=== PATIENT | male | born 1955 | race Caucasian/White ===

== ENCOUNTER 2021-04-28 18:21 | Inpatient (IN) | payer BC ==
[~2021-04-28] VITALS: Ht 193 cm; Wt 67.2 kg
[~2021-04-28 18:21] MED LIST changes: -OMEP20ER PO
[2021-04-28 19:02] LABS: BASOPHILS ABSOLUTE AUTO 0.02 K/mm3 (0.00-0.23); BASOPHILS PERCENT AUTO 0 % (0-2); EOSINOPHILS ABSOLUTE AUTO 0.07 K/mm3 (0.00-0.68); EOSINOPHILS PERCENT AUTO 1 % (0-6); Hematocrit 36.7 % (37.0-53.0); Hemoglobin 12.7 g/dL (13.5-17.5); IMMATURE GRAN ABSOLUTE AUTO 0.07 K/mm3 (0.00-0.10); IMMATURE GRAN PERCENT AUTO 1 % (0-1); LYMPHOCYTES ABSOLUTE AUTO 1.06 K/mm3 (0.84-5.20); LYMPHOCYTES PERCENT AUTO 8 % (21-46); MONOCYTES ABSOLUTE AUTO 1.02 K/mm3 (0.16-1.47); MONOCYTES PERCENT AUTO 8 % (4-13); Mean Corpuscular HGB 33.8 pg (26.0-34.0); Mean Corpuscular HGB Conc 34.6 g/dL (31.5-36.5); Mean Corpuscular Volume 98 fL (80-100); Mean Platelet Volume 10.3 fL (9.1-12.4); NEUTROPHILS ABSOLUTE AUTO 11.16 K/mm3 (1.96-9.15); NEUTROPHILS PERCENT AUTO 83 % (41-73); Platelet Count 410 K/mm3 (150-400); RDW Coefficient Variation 12.1 % (11.7-14.2); RDW Standard Deviation 43.8 fL (35.1-46.3); Red Blood Cell Count 3.76 M/mm3 (4.30-5.90)
[2021-04-28 20:20] LABS: Albumin, Blood 2.3 g/dL (3.4-5.0); Albumin/Globulin Ratio 0.6 (0.8-1.8); Bilirubin, Total 0.2 mg/dL (0.1-1.0); Bun/Creatinine Ratio 18.2 (12.0-20.0); Calcium, Blood 8.3 mg/dL (8.5-10.1); Creatinine, Blood 8.11 mg/dL (0.60-1.20); Globulin, Blood 4.1 g/dL (2.2-4.0); Potassium, Blood 5.5 mmol/L (3.5-5.5); Total Protein, Blood 6.4 g/dL (6.4-8.2)
[2021-04-29 06:59] LABS: BASOPHILS ABSOLUTE AUTO 0.02 K/mm3 (0.00-0.23); BASOPHILS PERCENT AUTO 0 % (0-2); EOSINOPHILS ABSOLUTE AUTO 0.11 K/mm3 (0.00-0.68); EOSINOPHILS PERCENT AUTO 1 % (0-6); Hematocrit 34.1 % (37.0-53.0); IMMATURE GRAN ABSOLUTE AUTO 0.04 K/mm3 (0.00-0.10); IMMATURE GRAN PERCENT AUTO 0 % (0-1); LYMPHOCYTES ABSOLUTE AUTO 1.34 K/mm3 (0.84-5.20); LYMPHOCYTES PERCENT AUTO 14 % (21-46); MONOCYTES ABSOLUTE AUTO 0.91 K/mm3 (0.16-1.47); MONOCYTES PERCENT AUTO 10 % (4-13); Mean Corpuscular HGB 33.8 pg (26.0-34.0); Mean Corpuscular HGB Conc 35.2 g/dL (31.5-36.5); Mean Corpuscular Volume 96 fL (80-100); Mean Platelet Volume 9.8 fL (9.1-12.4); NEUTROPHILS ABSOLUTE AUTO 7.06 K/mm3 (1.96-9.15); NEUTROPHILS PERCENT AUTO 75 % (41-73); Platelet Count 381 K/mm3 (150-400); RDW Coefficient Variation 11.9 % (11.7-14.2); Red Blood Cell Count 3.55 M/mm3 (4.30-5.90); White Blood Cell Count 9.48 K/mm3 (4.00-11.30)
[2021-04-29 07:25] LABS: Albumin, Blood 2.2 g/dL (3.4-5.0); Albumin/Globulin Ratio 0.6 (0.8-1.8); Bilirubin, Total 0.4 mg/dL (0.1-1.0); Calcium, Blood 8.3 mg/dL (8.5-10.1); Creatinine, Blood 5.76 mg/dL (0.60-1.20); Potassium, Blood 5.4 mmol/L (3.5-5.5); Total Protein, Blood 6.2 g/dL (6.4-8.2)
[2021-04-29 10:42] LABS: Source, Urine Clean Catch
[2021-04-29 10:50] LABS: Appearance, Urine Clear (Clear); Bilirubin, Urine Neg (Neg); Blood, Urine Neg (Neg); Color, Urine Yellow (P-Yellow); Glucose Qualitative, Urine Neg (Neg); Ketones, Urine Neg (Neg); Leukocyte Esterase, Urine Neg (Neg); Nitrite, Urine Neg (Neg); Protein, Urine 2+ (Neg); Specific Gravity, Urine 1.015 (1.003-1.022); Urobilinogen, Urine NORM (Normal)
[2021-04-29 12:10] LABS: Amorphous Light (0-Heavy); Bacteria Not Seen /hpf; Red Blood Cells, Urine Not Seen /hpf (0-2); Squamous Epithelial Cells Not Seen /hpf (Few); White Blood Cells, Urine 0-2 /hpf (0-5)
--- NOTE | 2021-04-29 19:06 | NUR ---
SHIFT SUMMARY PT ADMITTED FROM THE ED FOR ACUTE RENAL FAILURE AND PARTIAL SBO. PT ON BICARB DRIP AND NPO. A/O X4 AND PLEASANT. NORMAL SINUS ON TELE. VSS. WILL REPORT TO TYRA BLANCAS.
[2021-04-30 05:51] LABS: Albumin, Blood 2.2 g/dL (3.4-5.0); Anion Gap 9 mmol/L (6-16); Blood Urea Nitrogen 112 mg/dL (8-24); CO2, Blood 21 mmol/L (21-32); Calcium, Blood 8.2 mg/dL (8.5-10.1); Chloride, Blood 111 mmol/L (98-108); Creatinine, Blood 2.49 mg/dL (0.60-1.20); Glomerular Filtration Rate 26 (60-); Glucose, Blood 73 mg/dL (70-99); Magnesium, Blood 2.1 mg/dL (1.6-2.4); Phosphorus, Blood 4.8 mg/dL (2.5-4.9); Potassium, Blood 5.1 mmol/L (3.5-5.5); Sodium, Blood 141 mmol/L (136-145)
[2021-04-30 06:04] LABS: BASOPHILS ABSOLUTE AUTO 0.02 K/mm3 (0.00-0.23); BASOPHILS PERCENT AUTO 0 % (0-2); EOSINOPHILS ABSOLUTE AUTO 0.09 K/mm3 (0.00-0.68); EOSINOPHILS PERCENT AUTO 1 % (0-6); Hematocrit 34.8 % (37.0-53.0); Hemoglobin 12.2 g/dL (13.5-17.5); IMMATURE GRAN ABSOLUTE AUTO 0.04 K/mm3 (0.00-0.10); IMMATURE GRAN PERCENT AUTO 1 % (0-1); LYMPHOCYTES ABSOLUTE AUTO 1.16 K/mm3 (0.84-5.20); LYMPHOCYTES PERCENT AUTO 15 % (21-46); MONOCYTES ABSOLUTE AUTO 0.92 K/mm3 (0.16-1.47); MONOCYTES PERCENT AUTO 12 % (4-13); Mean Corpuscular HGB 34.5 pg (26.0-34.0); Mean Corpuscular HGB Conc 35.1 g/dL (31.5-36.5); Mean Corpuscular Volume 98 fL (80-100); Mean Platelet Volume 10.1 fL (9.1-12.4); NEUTROPHILS ABSOLUTE AUTO 5.59 K/mm3 (1.96-9.15); NEUTROPHILS PERCENT AUTO 71 % (41-73); Platelet Count 398 K/mm3 (150-400); RDW Coefficient Variation 11.8 % (11.7-14.2); RDW Standard Deviation 42.8 fL (35.1-46.3); Red Blood Cell Count 3.54 M/mm3 (4.30-5.90); White Blood Cell Count 7.82 K/mm3 (4.00-11.30)
--- NOTE | 2021-04-30 19:32 | NUR ---
SHIFT SUMMARY PT A/O X3; PLEASANT AND COOPERATIVE WITH CARE. TOLERATING CLEAR LIQUIDS WELL. REPORTED BOWEL MOVEMENT TODAY. VSS.
--- NOTE | 2021-05-01 02:27 | NUR ---
ETL ANALYST DEVELOPER SUMMARY PT A/O X4. DENIES PAIN, NAUSEA, SOB. ROOM AIR SATTING IN THE HIGH 90'S. TELE RUNNING SR IN THE 60'S PER GLASS BENDER. SLEPT WELL TONIGHT. NO ACUTE CHANGES, VSS. PT HAD NO BOWEL MOVEMENT ON NOC SHIFT. CALL LIGHT WITHIN REACH, BED ALARM ON, WILL CONTINUE TO MONITOR.
[2021-05-01 05:48] LABS: BASOPHILS ABSOLUTE AUTO 0.03 K/mm3 (0.00-0.23); BASOPHILS PERCENT AUTO 0 % (0-2); EOSINOPHILS ABSOLUTE AUTO 0.27 K/mm3 (0.00-0.68); EOSINOPHILS PERCENT AUTO 4 % (0-6); Hematocrit 32.3 % (37.0-53.0); Hemoglobin 10.9 g/dL (13.5-17.5); IMMATURE GRAN ABSOLUTE AUTO 0.04 K/mm3 (0.00-0.10); IMMATURE GRAN PERCENT AUTO 1 % (0-1); LYMPHOCYTES ABSOLUTE AUTO 1.48 K/mm3 (0.84-5.20); LYMPHOCYTES PERCENT AUTO 21 % (21-46); MONOCYTES ABSOLUTE AUTO 0.88 K/mm3 (0.16-1.47); MONOCYTES PERCENT AUTO 13 % (4-13); Mean Corpuscular HGB Conc 33.7 g/dL (31.5-36.5); Mean Corpuscular Volume 101 fL (80-100); NEUTROPHILS PERCENT AUTO 61 % (41-73); Platelet Count 389 K/mm3 (150-400); RDW Coefficient Variation 11.9 % (11.7-14.2); RDW Standard Deviation 43.8 fL (35.1-46.3); Red Blood Cell Count 3.21 M/mm3 (4.30-5.90)
[2021-05-01 06:20] LABS: Albumin/Globulin Ratio 0.5 (0.8-1.8); Bilirubin, Total 0.4 mg/dL (0.1-1.0); Bun/Creatinine Ratio 52.7 (12.0-20.0); Calcium, Blood 8.5 mg/dL (8.5-10.1); Creatinine, Blood 1.31 mg/dL (0.60-1.20); Magnesium, Blood 1.5 mg/dL (1.6-2.4); Phosphorus, Blood 2.9 mg/dL (2.5-4.9); Potassium, Blood 4.7 mmol/L (3.5-5.5); Thyroid Stimulating Hormone 1.28 uIU/mL (0.360-4.800)
[2021-05-01 11:38] LABS: Hematocrit 33.5 % (37.0-53.0); Hemoglobin 11.2 g/dL (13.5-17.5)
[2021-05-01] MEDS ORDERED: OMEP20ER PO ×2 (12:49)
--- NOTE | 2021-05-01 14:16 | NUR ---
DISCHARGE PATIENT TRANSPORTED VIA WHEELCHAIR TO PRIVATE VEHICLE. DISCHARGE INSTRUCTIONS EXPLAINED TO PATIENT. PATIENT STATED UNDERSTANDING. PACKET SENT WITH PATIENT. BELONGINGS SENT WITH PATIENT. BOTH IV'S REMOVED WITHOUT DIFFICULTY. TELEMETRY REMOVED WITHOUT DIFFICULTY. MEDICATIONS FAXED TO PERFERRED PHARMACY.
== END 2021-05-01 13:57 | disposition home or self-care (01) | DRG 682 ==
LOC: ER 18:21 → ERHOLD 22:29 → MEDS 22:29
PROVIDERS: Emergency Medicine; Family Medicine; ADMIT Internal Medicine
DX: N17.9 Acute kidney failure, unspecified (principal); J18.9 Pneumonia, unspecified organism; K56.7 Ileus, unspecified; E87.1 Hypo-osmolality and hyponatremia; E87.2 Acidosis; L02.212 Cutaneous abscess of back [any part, except buttock and flank]; E87.5 Hyperkalemia; E86.0 Dehydration; K52.9 Noninfective gastroenteritis and colitis, unspecified; D64.9 Anemia, unspecified; E83.42 Hypomagnesemia; E11.9 Type 2 diabetes mellitus without complications; F17.210 Nicotine dependence, cigarettes, uncomplicated; N18.4 Chronic kidney disease, stage 4 (severe); Z79.899 Other long term (current) drug therapy; E88.09 Other disorders of plasma-protein metabolism, not elsewhere classified; I95.9 Hypotension, unspecified
CPT/HCPCS: 36415; 71045; 71046; 74176; 80053; 80069; 81001; 82272; 83735; 84100; 84443; 85014; 85018; 85025; 93005; 93010; 94762; 99285-25; C9113; J0610; J0690; J3475; J7030; J7050

== ENCOUNTER → 2021-04-28 | Outpatient (CLI) | payer BC ==
[~2021-04-28] MED LIST: ALBU90OI INH; Ativan0.5 MG PO; LISI20; OMEP20ER PO; Prednisone20 MG PO; Zithromax250 MG PO
[2021-04-28 19:33] LABS: BASOPHILS ABSOLUTE AUTO 0.03 K/mm3 (0.00-0.23); BASOPHILS PERCENT AUTO 0 % (0-2); EOSINOPHILS ABSOLUTE AUTO 0.08 K/mm3 (0.00-0.68); EOSINOPHILS PERCENT AUTO 1 % (0-6); Hematocrit 38.7 % (37.0-53.0); Hemoglobin 13.6 g/dL (13.5-17.5); IMMATURE GRAN ABSOLUTE AUTO 0.06 K/mm3 (0.00-0.10); IMMATURE GRAN PERCENT AUTO 1 % (0-1); LYMPHOCYTES ABSOLUTE AUTO 1.81 K/mm3 (0.84-5.20); LYMPHOCYTES PERCENT AUTO 14 % (21-46); MONOCYTES ABSOLUTE AUTO 1.38 K/mm3 (0.16-1.47); MONOCYTES PERCENT AUTO 11 % (4-13); Mean Corpuscular HGB 34.1 pg (26.0-34.0); Mean Corpuscular HGB Conc 35.1 g/dL (31.5-36.5); Mean Corpuscular Volume 97 fL (80-100); Mean Platelet Volume 10.4 fL (9.1-12.4); NEUTROPHILS ABSOLUTE AUTO 9.57 K/mm3 (1.96-9.15); NEUTROPHILS PERCENT AUTO 74 % (41-73); Platelet Count 423 K/mm3 (150-400); RDW Coefficient Variation 11.9 % (11.7-14.2); RDW Standard Deviation 42.3 fL (35.1-46.3); Red Blood Cell Count 3.99 M/mm3 (4.30-5.90); White Blood Cell Count 12.93 K/mm3 (4.00-11.30)
[2021-04-28 20:42] LABS: Albumin, Blood 2.6 g/dL (3.4-5.0); Albumin/Globulin Ratio 0.5 (0.8-1.8); Bilirubin, Total 0.3 mg/dL (0.1-1.0); Bun/Creatinine Ratio 16.5 (12.0-20.0); Calcium, Blood 9.1 mg/dL (8.5-10.1); Potassium, Blood 5.6 mmol/L (3.5-5.5); Total Protein, Blood 7.6 g/dL (6.4-8.2)
[2021-04-28 20:44] LABS: Creatinine, Blood 9.45 mg/dL (0.60-1.20)
== END | disposition home or self-care (01) ==
LOC: LAB SHORT 16:40 → LAB 16:40
PROVIDERS: Nurse Practitioner Family
DX: R53.1 Weakness (principal); Z87.11 Personal history of peptic ulcer disease
CPT/HCPCS: 80053; 85025

== ENCOUNTER 2022-11-15 11:42 | Emergency (ER) | payer BC ==
[~2022-11-15] VITALS: Ht 193 cm; Wt 83.9 kg
[~2022-11-15 11:42] MED LIST changes: +METPRE4DP PO; +OMEP20ER PO
[2022-11-15 12:46] LABS: BASOPHILS ABSOLUTE AUTO 0.03 K/mm3 (0.00-0.23); BASOPHILS PERCENT AUTO 1 % (0-2); EOSINOPHILS ABSOLUTE AUTO 0.13 K/mm3 (0.00-0.68); EOSINOPHILS PERCENT AUTO 2 % (0-6); Hematocrit 40.9 % (37.0-53.0); Hemoglobin 13.6 g/dL (13.5-17.5); IMMATURE GRAN ABSOLUTE AUTO 0.04 K/mm3 (0.00-0.10); IMMATURE GRAN PERCENT AUTO 1 % (0-1); LYMPHOCYTES ABSOLUTE AUTO 1.08 K/mm3 (0.84-5.20); LYMPHOCYTES PERCENT AUTO 20 % (21-46); MONOCYTES ABSOLUTE AUTO 0.35 K/mm3 (0.16-1.47); MONOCYTES PERCENT AUTO 7 % (4-13); Mean Corpuscular HGB 30.8 pg (26.0-34.0); Mean Corpuscular HGB Conc 33.3 g/dL (31.5-36.5); NEUTROPHILS ABSOLUTE AUTO 3.68 K/mm3 (1.96-9.15); NEUTROPHILS PERCENT AUTO 69 % (41-73); RDW Coefficient Variation 13.7 % (11.7-14.2); RDW Standard Deviation 46.5 fL (35.1-46.3); Red Blood Cell Count 4.42 M/mm3 (4.30-5.90); White Blood Cell Count 5.31 K/mm3 (4.00-11.30)
[2022-11-15 12:48] LABS: Mean Corpuscular Volume 93 fL (80-100); Mean Platelet Volume 10.1 fL (9.1-12.4); Platelet Count 296 K/mm3 (150-400)
[2022-11-15] MEDS ORDERED: FUROSEMIDE20 MG PO (13:27)
[2022-11-15] MEDS ORDERED: Potassium Chlo20 ME1 PO (13:27)
[2022-11-15 13:41] LABS: Albumin, Blood 2.9 g/dL (3.4-5.0); Albumin/Globulin Ratio 0.8 (0.8-1.8); Bilirubin, Total 0.6 mg/dL (0.1-1.0); Calcium, Blood 8.3 mg/dL (8.5-10.1); Creatinine, Blood 0.88 mg/dL (0.60-1.20); Globulin, Blood 3.7 g/dL (2.2-4.0); Potassium, Blood 4.2 mmol/L (3.5-5.5); Total Protein, Blood 6.6 g/dL (6.4-8.2)
[2022-11-15 14:53] LABS: Magnesium, Blood 2.1 mg/dL (1.6-2.4)
== END 2022-11-15 15:00 | disposition home or self-care (01) ==
LOC: ER 11:42
PROVIDERS: Emergency Medicine; Physician Assistant
DX: I11.0 Hypertensive heart disease with heart failure (principal); I50.9 Heart failure, unspecified; J44.9 Chronic obstructive pulmonary disease, unspecified; R06.01 Orthopnea; E11.9 Type 2 diabetes mellitus without complications; F17.200 Nicotine dependence, unspecified, uncomplicated
CPT/HCPCS: 36415; 71046; 80053; 83690; 83735; 83880; 84484; 85025; 93005; 93010; 96374; 99284-25; G0480; J1940

== ENCOUNTER 2022-11-21 16:46 | Emergency (ER) | payer BC ==
[~2022-11-21] VITALS: Ht 193 cm; Wt 81.7 kg
[~2022-11-21 16:46] MED LIST changes: +FUROSEMIDE20 MG PO; +Potassium Chlo20 ME1 PO
[2022-11-21 17:16] LABS: BASOPHILS ABSOLUTE AUTO 0.03 K/mm3 (0.00-0.23); BASOPHILS PERCENT AUTO 0 % (0-2); EOSINOPHILS ABSOLUTE AUTO 0.13 K/mm3 (0.00-0.68); EOSINOPHILS PERCENT AUTO 2 % (0-6); Hematocrit 41.4 % (37.0-53.0); Hemoglobin 13.7 g/dL (13.5-17.5); IMMATURE GRAN ABSOLUTE AUTO 0.02 K/mm3 (0.00-0.10); IMMATURE GRAN PERCENT AUTO 0 % (0-1); LYMPHOCYTES ABSOLUTE AUTO 1.31 K/mm3 (0.84-5.20); LYMPHOCYTES PERCENT AUTO 19 % (21-46); MONOCYTES ABSOLUTE AUTO 0.74 K/mm3 (0.16-1.47); MONOCYTES PERCENT AUTO 11 % (4-13); Mean Corpuscular HGB 30.6 pg (26.0-34.0); Mean Corpuscular HGB Conc 33.1 g/dL (31.5-36.5); Mean Corpuscular Volume 93 fL (80-100); Mean Platelet Volume 10.9 fL (9.1-12.4); NEUTROPHILS ABSOLUTE AUTO 4.78 K/mm3 (1.96-9.15); NEUTROPHILS PERCENT AUTO 68 % (41-73); Platelet Count 207 K/mm3 (150-400); RDW Coefficient Variation 14.3 % (11.7-14.2); RDW Standard Deviation 47.8 fL (35.1-46.3); Red Blood Cell Count 4.47 M/mm3 (4.30-5.90); White Blood Cell Count 7.01 K/mm3 (4.00-11.30)
[2022-11-21 17:35] LABS: Albumin, Blood 2.8 g/dL (3.4-5.0); Albumin/Globulin Ratio 0.7 (0.8-1.8); Bilirubin, Total 1.4 mg/dL (0.1-1.0); Bun/Creatinine Ratio 17.6 (12.0-20.0); Calcium, Blood 8.8 mg/dL (8.5-10.1); Creatinine, Blood 1.02 mg/dL (0.60-1.20); Globulin, Blood 3.9 g/dL (2.2-4.0); Magnesium, Blood 2.2 mg/dL (1.6-2.4); Potassium, Blood 4.4 mmol/L (3.5-5.5); Total Protein, Blood 6.7 g/dL (6.4-8.2)
== END 2022-11-21 21:27 | disposition home or self-care (01) ==
LOC: ER 16:46
PROVIDERS: Physician Assistant
DX: I11.0 Hypertensive heart disease with heart failure (principal); I50.9 Heart failure, unspecified; J44.9 Chronic obstructive pulmonary disease, unspecified; E11.9 Type 2 diabetes mellitus without complications; F17.210 Nicotine dependence, cigarettes, uncomplicated; Z79.899 Other long term (current) drug therapy
CPT/HCPCS: 36415; 71046; 80053; 83735; 83880; 84484; 85025; 93005; 93010; 96374; 99284-25; J1940

== ENCOUNTER 2022-11-22 20:33 | Emergency (ER) | payer BC ==
[~2022-11-22] VITALS: Ht 193 cm; Wt 81.7 kg
[2022-11-22 21:25] LABS: BASOPHILS ABSOLUTE AUTO 0.04 K/mm3 (0.00-0.23); BASOPHILS PERCENT AUTO 1 % (0-2); EOSINOPHILS ABSOLUTE AUTO 0.02 K/mm3 (0.00-0.68); EOSINOPHILS PERCENT AUTO 0 % (0-6); Hemoglobin 13.5 g/dL (13.5-17.5); IMMATURE GRAN ABSOLUTE AUTO 0.04 K/mm3 (0.00-0.10); IMMATURE GRAN PERCENT AUTO 1 % (0-1); LYMPHOCYTES PERCENT AUTO 15 % (21-46); MONOCYTES ABSOLUTE AUTO 0.89 K/mm3 (0.16-1.47); MONOCYTES PERCENT AUTO 11 % (4-13); Mean Corpuscular HGB Conc 33.8 g/dL (31.5-36.5); Mean Corpuscular Volume 92 fL (80-100); NEUTROPHILS ABSOLUTE AUTO 5.77 K/mm3 (1.96-9.15); NEUTROPHILS PERCENT AUTO 72 % (41-73); Platelet Count 181 K/mm3 (150-400); RDW Coefficient Variation 14.5 % (11.7-14.2); RDW Standard Deviation 48.1 fL (35.1-46.3); Red Blood Cell Count 4.35 M/mm3 (4.30-5.90); White Blood Cell Count 7.96 K/mm3 (4.00-11.30)
[2022-11-22 21:49] LABS: Albumin, Blood 2.9 g/dL (3.4-5.0); Albumin/Globulin Ratio 0.8 (0.8-1.8); Bilirubin, Total 1.4 mg/dL (0.1-1.0); Bun/Creatinine Ratio 17.3 (12.0-20.0); Calcium, Blood 8.8 mg/dL (8.5-10.1); Creatinine, Blood 1.1 mg/dL (0.60-1.20); Globulin, Blood 3.6 g/dL (2.2-4.0); Potassium, Blood 4.3 mmol/L (3.5-5.5); Total Protein, Blood 6.5 g/dL (6.4-8.2)
== END 2022-11-22 22:07 | disposition left against medical advice (07) ==
LOC: ER 20:33
PROVIDERS: Emergency Medicine
DX: R41.82 Altered mental status, unspecified (principal); Z53.21 Procedure and treatment not carried out due to patient leaving prior to being seen by health care provider
CPT/HCPCS: 36415; 80053; 85025

== ENCOUNTER 2022-12-10 06:00 | Inpatient (IN) | payer BC, MEDICARE ==
[~2022-12-10] VITALS: Ht 188 cm; Wt 67.7 kg
[2022-12-10] VITALS (19 sets, daily range): BP systolic 98–124; BP diastolic 72–94
[2022-12-10 06:52] LABS: BASOPHILS ABSOLUTE AUTO 0.02 K/mm3 (0.00-0.23); BASOPHILS PERCENT AUTO 0 % (0-2); EOSINOPHILS ABSOLUTE AUTO 0.02 K/mm3 (0.00-0.68); EOSINOPHILS PERCENT AUTO 0 % (0-6); Hematocrit 41.3 % (37.0-53.0); Hemoglobin 13.4 g/dL (13.5-17.5); IMMATURE GRAN ABSOLUTE AUTO 0.08 K/mm3 (0.00-0.10); IMMATURE GRAN PERCENT AUTO 1 % (0-1); LYMPHOCYTES ABSOLUTE AUTO 1.27 K/mm3 (0.84-5.20); LYMPHOCYTES PERCENT AUTO 10 % (21-46); MONOCYTES PERCENT AUTO 11 % (4-13); Mean Corpuscular HGB Conc 32.4 g/dL (31.5-36.5); Mean Corpuscular Volume 93 fL (80-100); Mean Platelet Volume 10.6 fL (9.1-12.4); NEUTROPHILS PERCENT AUTO 79 % (41-73); Platelet Count 304 K/mm3 (150-400); RDW Coefficient Variation 15.3 % (11.7-14.2); RDW Standard Deviation 50.7 fL (35.1-46.3); Red Blood Cell Count 4.46 M/mm3 (4.30-5.90); White Blood Cell Count 13.39 K/mm3 (4.00-11.30)
[2022-12-10 07:02] LABS: Albumin, Blood 2.6 g/dL (3.4-5.0); Albumin/Globulin Ratio 0.7 (0.8-1.8); Bilirubin, Total 0.6 mg/dL (0.1-1.0); Bun/Creatinine Ratio 40.3 (12.0-20.0); Calcium, Blood 8.8 mg/dL (8.5-10.1); Creatinine, Blood 0.84 mg/dL (0.60-1.20); Globulin, Blood 3.8 g/dL (2.2-4.0); Potassium, Blood 5.8 mmol/L (3.5-5.5); Total Protein, Blood 6.4 g/dL (6.4-8.2)
--- NOTE | 2022-12-10 11:05 | NUR ---
RECEIVED REPORT FROM THE ER NURSE. PT ARRIVED VIA GURNEY. HE APPEARED VERY SOMNOLENT. PT ON 2L NC WITH SATS IN THE MID 90'S WITH PERIODS OF APNEA IN WHICH HE DESATS TO 90%. LUNG SOUNDS COARSE WITH WHEEZING T/O UPPER AND LOWER LOBES. PT HAS 4+ PITTING EDEMA IN LOWER EXTREMITIES BILATERALLY AND IN THE SCROTUM. PT AWAKENS TO PAINFUL STIMULI AND MOANS, HOWEVER DOES NOT ANSWER QUESTIONS. DR. ROSENBERG MADE AWARE OF PT STATUS VBG WAS DRAWN WITH NO SIGNIFICANT RESULTS. URINE TOX OBTAINED VIA STRAIGHT CATH RESULTS NEGATIVE. DR. ROSENBERG AT BEDSIDE TO OBSERVE PT. NO NEW ORDERS AT THIS TIME. PER DR. ROSENBERG HE SUGGESTED WE MONITOR PT UNTIL HE BECOMES ALERT AND RESPONSIVE. PT HEART RATE IN THE 100'S IN SINUS TACHYCARDIA. WILL CONTINUE TO MONITOR THE PT T/O THE SHIFT.
[2022-12-10 11:35] LABS: Base Excess Venous -3.6 mmol/L; Bicarbonate Venous 21.9 mmol/L (24.0-30.0); PCO2 Venous 34.3 mmHg (38-42)
[2022-12-10 12:48] LABS: U Amphetamine Screen Not Detected; U Barbituate Screen Not Detected; U Benzodiazapine Screen Not Detected; U Buprenorphine Screen Not Detected; U Cannabinoids Screen Not Detected; U Cocaine Screen Not Detected; U Methadone Screen Not Detected; U Methamphetamine Screen Not Detected; U Opiates Screen Not Detected; U Oxycodone Screen Not Detected; U Phencyclidine Screen Not Detected; U Propoxyphene Screen Not Detected
[2022-12-10 17:30] LABS: Bun/Creatinine Ratio 48.2 (12.0-20.0); Calcium, Blood 8.8 mg/dL (8.5-10.1); Creatinine, Blood 0.83 mg/dL (0.60-1.20); Potassium, Blood 5.1 mmol/L (3.5-5.5)
[2022-12-10 18:00] LABS: Source, Urine Foley catheter
[2022-12-10 18:20] LABS: Appearance, Urine Clear (Clear); Bilirubin, Urine Neg (Neg); Blood, Urine 2+ (Neg); Color, Urine Yellow (P-Yellow); Glucose Qualitative, Urine Neg (Neg); Ketones, Urine Neg (Neg); Leukocyte Esterase, Urine Neg (Neg); Nitrite, Urine Neg (Neg); Protein, Urine 1+ (Neg); Urobilinogen, Urine NORM (Normal)
[2022-12-10 18:33] LABS: Hyaline Casts 0-2 /lpf (0-2)
[2022-12-10 18:34] LABS: Bacteria Few /hpf; Squamous Epithelial Cells Not Seen /hpf (Few); White Blood Cells, Urine 0-2 /hpf (0-5)
--- NOTE | 2022-12-10 18:45 | NUR ---
PT SUMMARY: AGREED WITH STUDENTS PREVIOUS NOTE/DOCUMENTATION. PT REMAINED SOMNOLENT AND LETHARGIC MUMBLES WHEN ASKED QUESTIONS FALLS BACK TO SLEEP, STILL HAS APNEA EPISODES WITH GALNIA KEITA TYPE PATTERN OF RESPIRATIONS SATS WILL DROP TO LOW 90'S WITH APNEA OTHERWISE MAINTAINED >95%, SBP 90-100'S, HRR SR/ST 90-110'S, AFEBRILE. DISCUSSED PLAN WITH DR ROSENBERG PER ECHO PERSON ESTIMATED EF WAS AT 9% WITH DILATED CARDIOMYOPATHY AND PERICARDIAL EFFUSION, DR RATLIFF WAS CONSULTED ATTEMPTED TO SEE PT COULDNT GET ANY OTHER INFORMATION PT WAS SOMNOLENT, HE MENTIONED HE WILL TALK TO THE HOSPITALIST ABOUT THE PLAN. PT OF THIS TIME IS ICU STATUS FOR POSSIBLE LASIX AND INOTROPIN GTT. AWAITING SHIFT CHANGE TO GIVE REPORT TO ICU NURSE. MOORE CATHETER WAS PLACED FOR ACCURATE OUTPUT CHECK. BEFORE SHIFT CHANGE PT STARTED TO WAKE UP STILL MUMBLES WAS AGITATED TRYING TO PULL HIS CATHETER OUT, PULLING TELE OFF, THREATENING TO PUNCH THE STUDENT THE STUDENT WAS TRYING TO PUT THE O2 BACK ON. AWAITING TO TRANSFER TO ICU
--- NOTE | 2022-12-10 19:25 | NUR ---
PATIENT ARRIVED TO ICU 10 VIA BED FROM PCU. PATIENT AWAKE AND WANTING TO GET UP AND GO OUTSIDE TO SMOKE. BECOMING ANGRY WHEN ATTEMPT TO EXPLAIN THAT HE IS IN THE HOSPITAL BECAUSE OF HIS HEART AND HAVING DIFFICULTY WITH BEING SOB AT HOME. PATIENT TRANSFERRED TO ICU BED USING SLIDER SHEET AND PLACED ON ICU MONITORS. OXYGEN 2L/NC, MOIST NONPRODUCTIVE COUGH. MOORE DRAINING CLEAR YELLOW URINE.
--- NOTE | 2022-12-10 21:00 | NUR ---
PATIENT CONTINUES TO BE CONFUSED YELLING OUT, WANTING TO GO OUTSIDE TO HAVE A CIGARETTE. DESPITE FREQUENT REMINDERS TO NOT PULL OFF HEART MONITOR AND TO NOT PULL AT MOORE AND IV, PATIENT CONTINUES TO FORGET AND TRY TO REMOVE LINES AND CORDS. DAHLIA MORAES CALLED REGARDING PATIENTS CONTINUED AGITATION AND CONFUSION AND PLACEMENT OF BILAT SOFT WRIST RESTRAINTS. SEE NEW ORDERS
[2022-12-11] VITALS (27 sets, daily range): BP systolic 95–134; BP diastolic 54–104
[2022-12-11 03:06] LABS: Hematocrit 44.2 % (37.0-53.0); Mean Corpuscular HGB 30.2 pg (26.0-34.0); Mean Corpuscular HGB Conc 33.9 g/dL (31.5-36.5); Mean Corpuscular Volume 89 fL (80-100); Mean Platelet Volume 10.4 fL (9.1-12.4); Platelet Count 274 K/mm3 (150-400); RDW Coefficient Variation 15.5 % (11.7-14.2); RDW Standard Deviation 49.6 fL (35.1-46.3); Red Blood Cell Count 4.96 M/mm3 (4.30-5.90); White Blood Cell Count 12.51 K/mm3 (4.00-11.30)
--- NOTE | 2022-12-11 03:06 | NUR ---
PATIENT MORE RESTLESS AND UNABLE TO LAY STILL AND RELAX. ABLE TO COUGH UP A LARGE AMT OF THICK MOREJON SPUTUM OUT ONTO THE BED. HALDOL IV GIVEN, NOW PATIENT HAVING PERIODS OF APNEA, AWAKENING IN A PANIC WITH RESP IN THE 30'S. BIOX RANGING 89-100% ON 2L/NC. PATIENT HAD RUN OF VTACH, SELF RESOLVING. LAB CALLED TO HAVE AM LABS DRAWN EARLY
[2022-12-11 03:20] LABS: Bun/Creatinine Ratio 46.9 (12.0-20.0); Calcium, Blood 8.6 mg/dL (8.5-10.1); Creatinine, Blood 0.9 mg/dL (0.60-1.20); Potassium, Blood 4.9 mmol/L (3.5-5.5)
[2022-12-11 03:57] LABS: Magnesium, Blood 2.1 mg/dL (1.6-2.4); Phosphorus, Blood 4.2 mg/dL (2.5-4.9)
--- NOTE | 2022-12-11 06:44 | NUR ---
PATIENT RESTLESS AND ANXIOUS WHEN AWAKE. WAS IN BILAT WRIST RESTRAINTS TO REMIND PATIENT TO NOT PULL ON LINES AND CORDS, RESTRAINTS OFF NOW AND PATIENT NOT PULLING ON LINES AND CORDS AT THIS TIME. CONTINUES TO WANT TO GO HOME "I WILL FEEL BETTER IF I CAN JUST GO HOME" ATTEMPTING TO OBTAIN FAMILY NAME AND NUMBERS, PATIENT STATES HE HAS A BUT THEN NOT GIVING ME HER NAME OR HER NUMBER PATIENT GIVEN HIS CELL PHONE, BUT PATIENT HAVING DIFFICULTY WITH OPENING OUT OF SECURITY SCREEN. PATIENT CONTINUES SINUS TACH WITH OCCASIONAL PVC, WHEN UPSET AND ATTEMPTING TO POSITION SELF PATIENT HAD RUN OF SELF RESOLVING VTACH. NOW WITH ZYPREXA PATIENT SLEEPING MAINTAINING BIOX 97% ON 2L/NC SINUS RHYTHM LOW 100'S. SKIN COLOR CONTINUES TO BE DUSKY. GOOD URINE OUT PUT VIA MOORE.
--- NOTE | 2022-12-11 07:00 | NUR ---
ASSUME CARE: I have assumed care of this patient.
--- NOTE | 2022-12-11 15:48 | NUR ---
Met with pt at bedside along with Dr. Suero, and held a breif conversation with him. He was able to answer basic questions like, "do you know where you are" and "Do you know where you live?" He answered appropriately, for a few questions and then stopped and stared at us. Will attempt to meet with him again tomorrow.
--- NOTE | 2022-12-11 18:57 | NUR ---
SHIFT SUMMARY: pt more alert as the day progressed; oriented to self, family, and location. He was able to talk to his daughter over the phone this afternoon. RN updated pt's brother and daughter as well. Pt has requested to "go home" or "go outside to smoke" several times. Family meeting scheduled for [address] Cabrera was informed of this. NSR on monitor; BPs stable. Storm catheter in place draining to gravity. Pt took pills crushed in apple sauce after he passed a bedside swallow.
--- NOTE | 2022-12-11 20:58 | NUR ---
ASSUMED CARE AT 1900 PATIENT IS LETHARGIC, OPEN EYES SPONT BUT FALLS ASLEEP WHILE TALKING. FOLLOW COMMANDS AND ORIENTED X4. 02 SATS 95% ON RA, LS COARSE, PATIENT HAS WEAK COUGH. HR SR 90s, BP STABLE. MOORE PATENT AND DRAINING TO GRAVITY. PATIENT REPOSITIONED. CALL LIGHT IN REACH.
[2022-12-12] VITALS (28 sets, daily range): BP systolic 75–130; BP diastolic 47–89
[2022-12-12 03:50] LABS: BASOPHILS ABSOLUTE AUTO 0.02 K/mm3 (0.00-0.23); BASOPHILS PERCENT AUTO 0 % (0-2); EOSINOPHILS ABSOLUTE AUTO 0.04 K/mm3 (0.00-0.68); EOSINOPHILS PERCENT AUTO 0 % (0-6); Hematocrit 40.6 % (37.0-53.0); Hemoglobin 14.4 g/dL (13.5-17.5); IMMATURE GRAN ABSOLUTE AUTO 0.08 K/mm3 (0.00-0.10); IMMATURE GRAN PERCENT AUTO 1 % (0-1); LYMPHOCYTES PERCENT AUTO 8 % (21-46); MONOCYTES ABSOLUTE AUTO 1.06 K/mm3 (0.16-1.47); MONOCYTES PERCENT AUTO 10 % (4-13); Mean Corpuscular HGB 30.4 pg (26.0-34.0); Mean Corpuscular HGB Conc 35.5 g/dL (31.5-36.5); Mean Corpuscular Volume 86 fL (80-100); Mean Platelet Volume 10.1 fL (9.1-12.4); NEUTROPHILS ABSOLUTE AUTO 8.57 K/mm3 (1.96-9.15); NEUTROPHILS PERCENT AUTO 81 % (41-73); Platelet Count 201 K/mm3 (150-400); RDW Coefficient Variation 15.3 % (11.7-14.2); RDW Standard Deviation 47.3 fL (35.1-46.3); Red Blood Cell Count 4.74 M/mm3 (4.30-5.90); White Blood Cell Count 10.57 K/mm3 (4.00-11.30)
[2022-12-12 04:39] LABS: Albumin/Globulin Ratio 0.6 (0.8-1.8); Bilirubin, Total 1.2 mg/dL (0.1-1.0); Bun/Creatinine Ratio 38.1 (12.0-20.0); Calcium, Blood 8.2 mg/dL (8.5-10.1); Creatinine, Blood 0.89 mg/dL (0.60-1.20); Globulin, Blood 3.4 g/dL (2.2-4.0); Magnesium, Blood 1.8 mg/dL (1.6-2.4); Potassium, Blood 3.5 mmol/L (3.5-5.5); Total Protein, Blood 5.4 g/dL (6.4-8.2)
--- NOTE | 2022-12-12 05:26 | NUR ---
SHIFT SUMMARY PATIENT IS ALERT AND ORIENTED X4, FORGETFUL AT TIMES. 02 SATS >95% ON RA. HR SR-ST 90s-105. BP STABLE, DENIES CP/PRESSURE. MOORE PATENT AND DRAINING TO GRAVITY. PATIENT NPO. COUGHING UP SMALL AMOUNT OF BLOODY SPUTUM. ASSISTANCE WITH REPOSITIONING Q2 HOURS. CALL LIGHT IN REACH
--- NOTE | 2022-12-12 09:32 | NUR ---
Joint visit from [facility] with Pt, Pt's daughter Maryse, and Pt's brother Bonilla. Dr Cabrera, Dr Suero, Primary RN Carlyn, RN Caremanager Mtz, and this PC RN present. Pt awake and alert today. Dr Cabrera had discussion with Pt regarding code status wishes with Pt reporting Full Code status. Dr Cabrera discusses Pt's condition and reviews plan of care with Pt and family. Pt is agreeable to move forward with procedure. Family agrees that brother Bonilla should be person to notify and information can be passed on to family by Bonilla. Pt's daughter Chanel is on her way up from [place]. Remained behind and offered supportive visit to Pt and family. Pt's brother Bonilla Rodríguez [phone]. Palliative Care will F/U for advanced care planning and supportive visits
--- NOTE | 2022-12-12 09:34 | NUR ---
PT IS ALERT AND ORIENTED THIS MORNING. HE HAD HIS MEETING WITH DR. RATLIFF, PT'S LINN AND PT'S BROTHER. PALLIATIVE CARE AND CARE MANAGEMENT ALSO CAME BY. THE PLAN IS FOR PT TO HAVE HEART CATH TOMORROW IF HIS BNP IS DOWN ENOUGH. DR. RATLIFF ALSO GAVE ORDERS FOR METOPROLOL, BABY ASPIRIN, AND TO START A DIET, BUT NPO AFTER MIDNIGHT TONIGHT.
--- NOTE | 2022-12-12 09:59 | NUR ---
SVT PT'S HR JUMPED TO THE 180S AND SUSTAINED FOR LESS THAN A MINUTE, BEFORE SLOWING. RHYTHM SHOWED BIGEMINY AND TRIGEMINY IT SLOWED. PT'S MENTATION REMAINED INTACT. DENIED ANY SYMPTOMS. RATE NOW 110S WITH FREQUENT PVC. DR. RATLIFF NOTIFIED AND HE VERIFIED THAT METPOROLOL AND POTASSIUM WERE GIVEN ABOUT 30 MINUTES AGO. CONTINUE TO MONITOR.
--- NOTE | 2022-12-12 10:47 | NUR ---
"Spiritual Care Visit | Pt. Request Pt. is sitting up in bed and welcomes my visit. Pt. is pleasant but displays episodes of somnilence during our visit. Pt. 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 This timber cruiser verbalized gratitude for the Pts. service. The Pt. displayed evidence of sominlence but invited this timber cruiser to pray. Prayed with Pt. Will continue to be available to the Pt."
--- NOTE | 2022-12-12 11:55 | NUR ---
REASSESSMENT PT HAS REMAINED ALERT AND ORIENTED THROUGHOUT THE MORNING, BUT HE DOES HAVE MOMENTS OF CONFUSION WHERE HE YELLS OUT FOR HIS KIDS TO COME INTO THE ROOM, THINKING THAT THEY ARE JUST OUTSIDE THE CURTAIN. HE IS EASILY REORIENTED. HIS LUNGS ARE CLEAR, RA. NO MORE SVT SINCE THE ONE EPISODE. HE DID COMPLAIN OF FEELING A LITTLE DIZZY AT ONE POINT, BUT HR AND BP WERE UNCHANGED AND EPISODE QUICKLY PASSED. SIT WITH PVCS. TOLERATING DIET, BUT MINIMAL APPETITE. MOORE WITH CL YELLOW URINE. PT GOT UP TO THE CHAIR FOR LUNCH.
--- NOTE | 2022-12-12 16:43 | NUR ---
SHIFT SUMMARY PT HAS MAINTAINED HIS MENTATION THROUGHOUT THE DAY. HE IS ALERT AND ORIENTED. LESS EPISODES OF CONFUSION THIS AFTERNOON. HIS LUNGS ARE CLEAR. HE STILL HAS A CONGESTED COUGH WITH SMALL AMT OF THICK RED SPUTUM. SINUS TACH WITH PVCS, TRIGEMINY AT TIMES. HE HAS BEEN TOLERATING HIS PO DIET. PT WANTS TO DRINK LOTS OF FLUIDS AND HAS NEEDED REMINDERS ABOUT FLUID BALANCE ALL DAY. HE IS AGREEABLE TO MODERATING PO FLUID INTAKE WHEN REMINDED. MOORE WITH GOOD OUTPUT, YELLOW. FAMILY VISITED THROUGHOUT THE DAY AND WAS UPDATED.
--- NOTE | 2022-12-12 20:21 | NUR ---
ASSUMED CARE PATIENT IS ALERT AND ORIENTED X4, CAN BE FORGETFUL. 02 SATS 96% ON RA, DENIES SOB. COUGHING UP SMALL AMOUNT OF RED SPUTUM. HR SR-ST 90s-110 WITH PVCs, BP STABLE. MOORE PATENT AND DRAINING TO GRAVITY. PATIENT INDEPENDENT IN BED. FAMILY AT BEDSIDE. CALL LIGHT IN REACH
[2022-12-13] VITALS (17 sets, daily range): BP systolic 70–135; BP diastolic 54–118
[2022-12-13 03:52] LABS: Bun/Creatinine Ratio 30.3 (12.0-20.0); Calcium, Blood 8.3 mg/dL (8.5-10.1); Creatinine, Blood 0.69 mg/dL (0.60-1.20); Magnesium, Blood 1.5 mg/dL (1.6-2.4); Potassium, Blood 2.9 mmol/L (3.5-5.5)
--- NOTE | 2022-12-13 06:17 | NUR ---
SHIFT SUMMARY PATIENT REMAINS ALERT AND ORIENTED. 02 SATS >93% ON RA. SPITTING UP SMALL AMOUNTS OF BLOODY SPUTUM. HR SR 90s, WITH SOME PVCs. BP STABLE, DENIES CP/PRESSURE. MOORE PATENT AND DRAINING TO GRAVITY. REPLACING POTASSIUM AND MAG THIS AM. NPO SINCE MIDNIGHT. PATIENT ABLE TO REPOSITION SELF IN BED, ASSISTANCE PRN
--- NOTE | 2022-12-13 07:24 | NUR ---
ASSUMED CARE: PT RESTING IN BED ON RA AT THIS TIME. NSR ON TELE IN THE . NPO FOR POSSIBLE PROCEDURE TODAY. AWAITING FURTHER INSTRUCTIONS FROM PHYSICIAN. REMINDED PT THAT HE IS NPO AT THIS TIME.
--- NOTE | 2022-12-13 09:17 | NUR ---
PT CONTINUES TO ASK IF HE CAN EAT. CALL TO CONTROL ROOM TO FIND OUT DR RATLIFF'S PLANS. DR IN CASE. STAFF WILL GIVE THE MESSAGE
--- NOTE | 2022-12-13 11:47 | NUR ---
HEART CENTER STAFF HERE TO COLLECT PT. PT BEING TAKEN TO EATING DISORDER PSYCHOLOGIST VIA BED. POTASSIUM STILL INFUSING
--- NOTE | 2022-12-13 15:08 | NUR ---
PT RETURNED FROM WEBLOGIC ADMINISTRATOR WITH TR BAND TO RIGHT WRIST AND GROIN SITE TO RIGHT GROIN. SCANT BRUISING NOTED TO WRIST. NO BLEEDING OR SWELLING NOTED TO GROIN. PT PROVIDED WITH FOOD PER ORDERS. NO ACUTE NEEDS AT THIS TIME.
--- NOTE | 2022-12-13 17:57 | NUR ---
SHIFT SUMMARY: PT RETURNED FROM ELECTRICAL ESTIMATOR WITH RIGHT RADIAL SITE AND RIGHT GROIN SITE. NO SIGN OF BLEEDING OR BRUISING IN GROIN, SMALL AMOUNT OF BRUISING TO RIGHT WRIST. UP IN CHAIR AT THIS TIME. PT HAS BEEN AGITATED THIS EVENING, THINKS HE IS AT HOME, KEEPS ASKING WHERE HIS DAUGHTER IS. TAB ALARM IN PLACE BECAUSE PT IS IMPULSIVE. NO FURTHER NEEDS AT THIS TIME.
[2022-12-14 01:00] VITALS: BP 74/56
--- NOTE | 2022-12-14 01:13 | NUR ---
PT UPDATE: PT CALLED IN THIS RN AND PRECEEDS TO STATE " [facility] CALL [facility]". PT EDUCATED ABOUT NOT BEING ABLE TO SIT AT NURSES STATIONS AND THAT IF HE WANTED TO HE COULD SIT IN A CHAIR IN HIS ROOM. PT VERY ADAMANT ABOUT LEAVING HIS ROOM TO MAKE THE PHONE CALL. PT CONTINUED TO BECOME AGGITATED AND DEMANDS THE EKG LEADS AND BLOOD PRESSURE CUFF TO BE REMOVED. PT STATES " I AM GOING HOME TOMORROW MORNING AT 0800, YOU BETTER HAVE ALL MY STUFF READY". PT IS NOT ABLE TO BE REDIRECTED. PT USING CURSE WORDS AT STAFF MEMBERS. PT IS NOW SITTING IN A RECLINER IN HIS ROOM AT THIS TIME. WILL CONTINUE TO MONITOR.
[2022-12-14 03:58] VITALS: BP 97/62
--- NOTE | 2022-12-14 05:15 | NUR ---
SHIFT SUMMARY ASSUMED CARE OF PT AT 0400. PT WAS SLEEPY. HEART SOUNDS REGULAR. LUNG SOUNDS DIMINISHED AT BASES. PT SLEPT THE REMAINDER OF SHIFT AFTER TRANSFER.
[2022-12-14 06:09] LABS: Bun/Creatinine Ratio 40.7 (12.0-20.0); Calcium, Blood 7.7 mg/dL (8.5-10.1); Creatinine, Blood 0.71 mg/dL (0.60-1.20); Magnesium, Blood 1.9 mg/dL (1.6-2.4); Potassium, Blood 3.4 mmol/L (3.5-5.5)
[2022-12-14 06:43] LABS: BASOPHILS ABSOLUTE AUTO 0.01 K/mm3 (0.00-0.23); BASOPHILS PERCENT AUTO 0 % (0-2); EOSINOPHILS PERCENT AUTO 1 % (0-6); Hematocrit 41.5 % (37.0-53.0); Hemoglobin 14.3 g/dL (13.5-17.5); IMMATURE GRAN ABSOLUTE AUTO 0.04 K/mm3 (0.00-0.10); IMMATURE GRAN PERCENT AUTO 0 % (0-1); LYMPHOCYTES ABSOLUTE AUTO 0.85 K/mm3 (0.84-5.20); LYMPHOCYTES PERCENT AUTO 9 % (21-46); MONOCYTES ABSOLUTE AUTO 0.87 K/mm3 (0.16-1.47); MONOCYTES PERCENT AUTO 10 % (4-13); Mean Corpuscular HGB 30.6 pg (26.0-34.0); Mean Corpuscular HGB Conc 34.5 g/dL (31.5-36.5); Mean Corpuscular Volume 89 fL (80-100); NEUTROPHILS ABSOLUTE AUTO 7.16 K/mm3 (1.96-9.15); NEUTROPHILS PERCENT AUTO 79 % (41-73); RDW Coefficient Variation 15.5 % (11.7-14.2); RDW Standard Deviation 49.7 fL (35.1-46.3); Red Blood Cell Count 4.67 M/mm3 (4.30-5.90); White Blood Cell Count 9.03 K/mm3 (4.00-11.30)
[2022-12-14 09:00] LABS: Mean Platelet Volume 10.1 fL (9.1-12.4); Platelet Count 163 K/mm3 (150-400)
[2022-12-14 09:07] VITALS: BP 88/59
--- NOTE | 2022-12-14 09:35 | NUR ---
PT IS DIFFICULT TO AROUSE IN ROOM. RECEIVED IN REPORT THAT THE PT RECEIVED SEROQUEL EARLY THIS AM TO HELP WITH AGITATION AND DIFFICULTY SLEEPING. PT HAS BEEN SLEEPING SINCE. PT VSS. PT ABLE TO FOLLOW COMMANDS WHEN THIS RN OBTAINED VSS, BUT QUICKLY FELL BACK ASLEEP. RESPIRATIONS ARE EVEN AND UNLABORED. PO MEDS CURRENTLY BEING HELD UNTIL PT IS MORE AROUSABLE.
--- NOTE | 2022-12-14 11:25 | NUR ---
Spoke with Dr Suero and discussed case. Family has expresses concerns about the probability of non compliance when returning home. Conversation regarding hospice has been started. Pt and family may benefit from conversation regarding code status and completing POLST. Pt sitting in chair upon arrival. Pt's family at bedside. Pt is A&OX2/3. Pt is able to verbalize being in a hospital but unable to veralize name. Pt unable to verbalize reason for hospital stay. Pt does know the current year and president. Engaged in therapeutic conversation regarding goals of care. Continued conversation regarding hospice and also discussed the option for Palliative AIM program. Discussed code status wishes. Educated on life sustaining treatments including risks and implications to CPR/Intubation. Provided POLST form. Pt stating he would like his family to make these decisions. Family reports Pt's daughter Maryse plans to visit and will have further conversations once she arrives. Offered therapeutic listening and answered questions. Palliative Care will remain available
[2022-12-14 17:36] VITALS: BP 95/78
--- NOTE | 2022-12-14 17:51 | NUR ---
SHIFT SUMMARY PT A/O X4 AT THIS TIME. WHEN PT FIRST AWOKE THIS AM, HE WAS UNAWARE OF HIS LOCATION BUT WAS ORIENTED TO SELF, FAMILY, AND KNEW HE WAS IN HOSPITAL. PT WAS ALSO AGITATED AND USING FOUL LANGUAGE WITH IT DESKTOP SUPPORT SPECIALIST WHILE TRYING TO ASSIST HIM WITH A URINAL. PT REMAINS A&O AND HAS BEEN PLEASANT AND COOPERATIVE WITH CARE SINCE. PT HAS HAD FAMILY AT BEDSIDE T/O SHIFT. PT VSS. HE WAS TRANSFERRED TO MEDICAL STATUS WITHOUT TELEMETRY TODAY. PLAN TO MONITOR PT AND DISCHARGE IN AM. PT INDEPENDENT IN ROOM WITH USE OF A CANE. PT UP IN CHAIR FOR MAJORITY OF SHIFT BY REQUEST. PHYSICAL THERAPY WORKED WITH PT TODAY AND STATED HE DID GREAT AND HE WOULD NOT REQUIRE HOME HEALTH PT. WILL CONTINUE TO CARE FOR PT AND REPORT TO ONCOMING RN.
[2022-12-14 19:41] VITALS: BP 105/77
--- NOTE | 2022-12-14 21:19 | NUR ---
ASSUMPTION OF CARE THIS RN ASSUMED CARE OF PATIENT AT 1900. REPORT TAKEN FROM RADHA BLANCAS. PATIENT ALERT AND ORIENTED FULLY. RIGHT RADIAL AND RIGHT FEMORAL SITE WNL, NO SIGNS OF BLEEDING, HEMATOMA, OR DISCOLORATION NOTED. BP STABLE. AFEBRILE. HR 80-90'S. NO TELE. DENIES CHEST PAIN/PRESSURE, SOB, OR DIZZINESS AT THIS TIME. BLE PITTING EDEMA NOTED. PATIENT INDEPENDENT IN ROOM WITH ADL'S. PT WITH C/O TROUBLE SLEEPING A PTSD, REQUESTING PO SEROQUEL WHICH WAS GIVEN THE PREVIOUS NIGHT AND HELPED HIM SLEEP. PT ALSO C/O HEAD CONGESTION STATING "I FEEL LIKE I HAVE A HEAD COLD". THIS RN CALLED MD FOURNIER REGARDING REQUESTS/COMPLAINTS. WITH ORDERS FOR PO SEROQUEL AND MUCINEX. SEE EMAR. OTHERWISE PATIENT HAS BEEN COOPERATIVE FOR THIS RN. MEDICATED PER EMAR FOR NECK PAIN. BED IN LOWEST POSITION AND CALL LIGHT WITHIN REACH.
[2022-12-15 03:26] VITALS: BP 106/76
[2022-12-15 03:40] LABS: BASOPHILS ABSOLUTE AUTO 0.02 K/mm3 (0.00-0.23); BASOPHILS PERCENT AUTO 0 % (0-2); EOSINOPHILS ABSOLUTE AUTO 0.23 K/mm3 (0.00-0.68); EOSINOPHILS PERCENT AUTO 3 % (0-6); Hematocrit 42.7 % (37.0-53.0); Hemoglobin 14.4 g/dL (13.5-17.5); IMMATURE GRAN ABSOLUTE AUTO 0.03 K/mm3 (0.00-0.10); IMMATURE GRAN PERCENT AUTO 0 % (0-1); LYMPHOCYTES ABSOLUTE AUTO 1.21 K/mm3 (0.84-5.20); LYMPHOCYTES PERCENT AUTO 14 % (21-46); MONOCYTES ABSOLUTE AUTO 0.76 K/mm3 (0.16-1.47); MONOCYTES PERCENT AUTO 9 % (4-13); Mean Corpuscular HGB 29.9 pg (26.0-34.0); Mean Corpuscular HGB Conc 33.7 g/dL (31.5-36.5); Mean Corpuscular Volume 89 fL (80-100); Mean Platelet Volume 10.2 fL (9.1-12.4); NEUTROPHILS ABSOLUTE AUTO 6.71 K/mm3 (1.96-9.15); NEUTROPHILS PERCENT AUTO 75 % (41-73); Platelet Count 175 K/mm3 (150-400); RDW Coefficient Variation 15.6 % (11.7-14.2); RDW Standard Deviation 50.6 fL (35.1-46.3); Red Blood Cell Count 4.82 M/mm3 (4.30-5.90); White Blood Cell Count 8.96 K/mm3 (4.00-11.30)
[2022-12-15 04:07] LABS: Bun/Creatinine Ratio 39.8 (12.0-20.0); Calcium, Blood 8.3 mg/dL (8.5-10.1); Creatinine, Blood 0.73 mg/dL (0.60-1.20)
--- NOTE | 2022-12-15 05:19 | NUR ---
SHIFT SUMMARY NO ACUTE CHANGES OVERNIGHT. RIGHT FEMORAL/RADIAL SITE WNL; NO CHANGES. VITALS STABLE. INDEPENDENT WITH ADL'S. PATIENT STATED THAT THE PO SEROQUEL HELPED HIM "GET A GOOD NIGHTS REST", STATING THAT HE "FEELS BACK TO NORMAL", PT DID ADMIT THAT HE FELT BRIEFLY CONFUSED WHEN WAKING UP SINCE HE WAS NOT HOME BUT HE QUICKLY REMEMBERED WHERE HE WAS. PATIENT CALM AND COOPERATIVE WITH CARE AND PLEASANT WITH ALL STAFF MEMBERS. BED IN LOWEST POSITION AND CALL LIGHT WITHIN REACH. THIS RN WILL CONTINUE TO MONITOR UNTIL SHIFT CHANGE AT 0700.
[2022-12-15 07:38] VITALS: BP 91/67
[2022-12-15 11:16] VITALS: BP 106/71
--- NOTE | 2022-12-15 13:16 | NUR ---
Pt sitting in chair and appears mildly anxious. Family at bedside. Family reports plan will be home health and are waiting for hospitalist to make her rounds. Pt anxious to go home. Family reports no concerns at this time. Palliative Care will remain available
--- NOTE | 2022-12-15 13:52 | NUR ---
Changed Pt's code status in error, ordered on wrong Pt. Corrected Pt's code status back to full code.
[2022-12-15] MEDS ORDERED: ASPI81CH PO (15:22)
[2022-12-15] MEDS ORDERED: ATOR40TA PO (15:23)
[2022-12-15] MEDS ORDERED: BUME2 PO (15:26)
[2022-12-15] MEDS ORDERED: GUAI600T33 PO (15:27)
[2022-12-15] MEDS ORDERED: LOSA25 PO (15:28)
[2022-12-15] MEDS ORDERED: METO25ER PO (15:29)
[2022-12-15] MEDS ORDERED: MELATONIN5 M1 PO (15:29)
[2022-12-15] MEDS ORDERED: SPIR25 PO (15:30)
[2022-12-15] MEDS ORDERED: NICO21TP TOP (15:30)
[2022-12-15] MEDS ORDERED: Calcium Carbon500 MG PO (15:32)
--- NOTE | 2022-12-15 16:00 | NUR ---
DISHCARGE: Pt and his daughter were given verabal and written discharge instructions. Verbalized understanding. Denied questions. Rx were sent to [facility]. Pt was given F/U appointment for PCP. Left via w/c. Christian at time of discharge.
== END 2022-12-15 16:00 | disposition home health service (06) | DRG 286 ==
LOC: ER 06:00 → PCU 08:48 → ICUW 08:48 → PCU 10:59 → ICUW 19:25 → PCU 12-14 04:26
PROVIDERS: Internal Medicine; Student in an Organized Health Care Education/Training Program; ADMIT Internal Medicine
PROC: 4A023N8 Measurement of Cardiac Sampling and Pressure, Bilateral, Percutaneous Approach (ICD-10-PCS; principal; 2022-12-13)
PROC: B211YZZ Fluoroscopy of Multiple Coronary Arteries using Other Contrast (ICD-10-PCS; 2022-12-13)
PROC: B240ZZ3 Ultrasonography of Single Coronary Artery, Intravascular (ICD-10-PCS; 2022-12-13)
DX: I13.0 Hypertensive heart and chronic kidney disease with heart failure and stage 1 through stage 4 chronic kidney disease, or unspecified chronic kidney disease (principal); I50.21 Acute systolic (congestive) heart failure; J96.01 Acute respiratory failure with hypoxia; E87.1 Hypo-osmolality and hyponatremia; J98.11 Atelectasis; G93.40 Encephalopathy, unspecified; Z51.5 Encounter for palliative care; I25.82 Chronic total occlusion of coronary artery; I25.10 Atherosclerotic heart disease of native coronary artery without angina pectoris; J44.9 Chronic obstructive pulmonary disease, unspecified; E11.22 Type 2 diabetes mellitus with diabetic chronic kidney disease; F17.210 Nicotine dependence, cigarettes, uncomplicated; D50.9 Iron deficiency anemia, unspecified; E87.5 Hyperkalemia; F43.10 Post-traumatic stress disorder, unspecified; I08.1 Rheumatic disorders of both mitral and tricuspid valves; N18.30 Chronic kidney disease, stage 3 unspecified; F10.20 Alcohol dependence, uncomplicated; I42.0 Dilated cardiomyopathy; E86.0 Dehydration; I27.20 Pulmonary hypertension, unspecified; I71.21 Aneurysm of the ascending aorta, without rupture; Z71.6 Tobacco abuse counseling; Z79.51 Long term (current) use of inhaled steroids; Z91.148 Patient's other noncompliance with medication regimen for other reason; Z79.4 Long term (current) use of insulin; Z71.41 Alcohol abuse counseling and surveillance of alcoholic; Z79.82 Long term (current) use of aspirin; Z79.899 Other long term (current) drug therapy; R94.31 Abnormal electrocardiogram [ECG] [EKG]; Z79.01 Long term (current) use of anticoagulants
CPT/HCPCS: 36415; 71046; 71260; 76937; 80048; 80053; 81001; 82803; 82947; 83036; 83690; 83735; 83880; 84100; 84145; 84484; 85025; 85027; 85049; 85379; 93005; 93010; 93456; 94640; 94644; 94664; 94760; 94762; 96374-59; 96375-59; 96376-59; 97162; 99152; 99153; 99285-25; A9270; C1751; C1769; C1887; C1894; C8929; J0612; J0696; J1200; J1630; J1644; J1650; J1815; J1940; J2060; J2250; J3010; J3475; J3480; J7030; J7040; J7050; J7799; Q9957; Q9967